=== PATIENT | female | born 2000 | race Caucasian/White ===

== ENCOUNTER 2021-04-17 16:26 | Emergency (ER) | payer OTHER ==
[~2021-04-17] VITALS: Ht 170.2 cm; Wt 97.7 kg
[2021-04-17] MEDS ORDERED: ACET325T43 PO (16:33)
[2021-04-17] MEDS ORDERED: IBUP-1114 PO (16:33)
--- NOTE | 2021-04-17 18:54 | REP ---
INDICATION: pain after lifting COMPARISON: None. TECHNIQUE: AP, lateral, and swimmers views. FINDINGS: Alignment and kyphosis is maintained. Vertebral bodies intact. No acute fracture / compression injury or subluxation. No degenerative changes. Paravertebral soft tissues are normal. IMPRESSION: Normal thoracic spine series. <Electronically signed by Sebastian Saunders > 04/17/21 [id number]
[2021-04-17] MEDS ORDERED: KETOROLAC 60MG 2ML VIAL IM ONE (19:00)
--- NOTE | 2021-04-17 19:49 | REP ---
INDICATION: posterior rib pain COMPARISON: None. TECHNIQUE: Frontal view of the chest with multiple views of the right and left hemithorax. FINDINGS: Frontal view of the chest demonstrates no acute cardiopulmonary process, contusion, effusion, or pneumothorax. Multiple views of the hemithorax demonstrates no acute rib fracture/injury or pathology. IMPRESSION: Normal bilateral rib series. <Electronically signed by Sebastian Saunders > 04/17/211944
[2021-04-17] MEDS ORDERED: METH-1164 PO (20:05)
[2021-04-17 20:10] VITALS: BP 130/73
== END 2021-04-17 20:17 | disposition home or self-care (01) ==
LOC: M ED 16:26
DX: S23.3XXA Sprain of ligaments of thoracic spine, initial encounter (principal); X50.0XXA Overexertion from strenuous movement or load, initial encounter; Y92.9 Unspecified place or not applicable; Y93.89 Activity, other specified; Y99.9 Unspecified external cause status; Z88.0 Allergy status to penicillin; Z91.030 Bee allergy status; Z91.040 Latex allergy status
CPT/HCPCS: 71111; 72072; 96372; 99283; J1885

== ENCOUNTER 2021-08-08 16:09 | Inpatient (IN) | payer OTHER ==
[~2021-08-08] VITALS: Ht 170.2 cm; Wt 96.7 kg
[~2021-08-08 16:09] MED LIST: ACET325T43 PO; IBUP-1114 PO; METH-1164 PO
[2021-08-08] MEDS ORDERED: ONDA-83 PO (22:10)
[2021-08-08] MEDS ORDERED: ACET1TAB16 PO (22:10)
[2021-08-08] MEDS ORDERED: IBUP80TA PO (22:10)
[2021-08-10] MEDS ORDERED: LEVO500T4 PO (07:11)
[2021-08-10 12:00] VITALS: BP 134/80
== END 2021-08-10 12:20 | disposition home or self-care (01) | DRG 779 ==
LOC: M ED 16:09 → M ED INP 21:55 → ENRESERV 08-09 09:07 → M PED 08-09 10:20
PROVIDERS: ADMIT Internal Medicine; ATTEND Internal Medicine
DX: O04.5 Genital tract and pelvic infection following (induced) termination of pregnancy (principal); U07.1 COVID-19; N10 Acute pyelonephritis; Z88.0 Allergy status to penicillin; Z91.030 Bee allergy status; Z91.040 Latex allergy status; Z53.20 Procedure and treatment not carried out because of patient's decision for unspecified reasons; Z87.440 Personal history of urinary (tract) infections; B96.20 Unspecified Escherichia coli [E. coli] as the cause of diseases classified elsewhere